=== PATIENT | male | born 1995 | race Hispanic/Latino ===

== ENCOUNTER 2021-08-04 22:38 | Emergency (ER) | payer SELFPAY ==
[2021-08-04] MEDS ORDERED: Ondansetron ODT 4 MG TAB ONE (23:25)
[2021-08-04] MEDS ORDERED: Acetaminophen 500 MG TAB ONE (23:25)
[2021-08-04] MEDS ORDERED: Oxymetazoline HCl 0.05% (30 ML BOT) ONE (23:26)
[2021-08-05 00:54] LABS: SARS-CoV-2 NAA Rapid Test Not Detected (NotDetected)
== END 2021-08-05 01:38 | disposition home or self-care (01) ==
LOC: ERS 22:38
DX: J06.9 Acute upper respiratory infection, unspecified (principal); Z20.822 Contact with and (suspected) exposure to COVID-19; F17.290 Nicotine dependence, other tobacco product, uncomplicated
CPT/HCPCS: 87804; 99283; Q0162; U0002